=== PATIENT | male | born 1990 | race Caucasian/White ===

== ENCOUNTER 2018-12-22 01:52 | Emergency (ER) | payer OTHER ==
[2018-12-22] MEDS ORDERED: Codeine/guaiFENesin 100mg-10 MG/5 ML Soln 118 ML Bottle PO ONE (01:53)
--- NOTE | 2018-12-22 03:29 | ER ---
DATE SEEN: 12/22/2018 CHIEF COMPLAINT: Cough. HISTORY OF PRESENT ILLNESS: This is a 28-year-old male with a cough for 5 days that is constant, paroxysmal, and productive. No fever. Has tried Tessalon Perles and [id number] DayQuil and NyQuil with no improvement. SOCIAL HISTORY: Smoker. REVIEW OF SYSTEMS: No chest pain or shortness of breath. PHYSICAL EXAMINATION: GENERAL: He is a well-nourished and developed male. VITAL SIGNS: He is afebrile and normotensive. ENT: Negative. HEENT: Head is atraumatic. CHEST: Clear. CARDIOVASCULAR: Normal. IMPRESSION: Acute bronchitis. TREATMENT: Robitussin with Codeine 10 mL every 6 hours p.r.n. for cough. If symptoms are not improved in the next 1 week, should follow up with PCP. I also discussed smoking cessation for 3 to 5 minutes. /[id number] JUSTIN/KHANG
== END 2018-12-22 02:30 | disposition home or self-care (01) ==
LOC: FB.ED 01:52
DX: J20.9 Acute bronchitis, unspecified (principal); F17.200 Nicotine dependence, unspecified, uncomplicated
CPT/HCPCS: 99282; A9270

== ENCOUNTER 2019-10-09 23:03 | Emergency (ER) | payer MEDICAID, OTHER ==
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
[2019-10-09] MEDS ORDERED: Iopamidol 755 Mg/ML 100 ML Bottle IV ONE (23:28)
[2019-10-09] MEDS ORDERED: Diphtheria,Pertussis(Acell),Tetanus Vaccine 0.5 ML SDV IM ONE (23:38)
[2019-10-09] MEDS ORDERED: Sodium Chloride 0.9% 1,000 ML IV SCH (23:45)
[2019-10-10] MEDS: Sodium Chloride 0.9% 10 ML Syringe FLUSH PRN ×2 (00:40→01:48)
[2019-10-10] MEDS ORDERED: HYDROmorphone 2 MG/ML SDV IVPUSH ONE (00:55)
[2019-10-10] MEDS ORDERED: Sodium Chloride 0.9% 1,000 ML IV SCH (01:00)
[2019-10-10] MEDS ORDERED: HYDROmorphone 2 MG/ML SDV ONE (01:10)
== END 2019-10-10 03:35 | disposition home or self-care (01) ==
LOC: FB.ED 23:03
DX: S31.119A Laceration without foreign body of abdominal wall, unspecified quadrant without penetration into peritoneal cavity, initial encounter (principal); S20.319A Abrasion of unspecified front wall of thorax, initial encounter; S40.811A Abrasion of right upper arm, initial encounter; S80.811A Abrasion, right lower leg, initial encounter; S00.93XA Contusion of unspecified part of head, initial encounter; T79.6XXA Traumatic ischemia of muscle, initial encounter; Z23 Encounter for immunization; E87.6 Hypokalemia; Z88.6 Allergy status to analgesic agent; Z88.5 Allergy status to narcotic agent; Z88.0 Allergy status to penicillin; V03.90XA Pedestrian on foot injured in collision with car, pick-up truck or van, unspecified whether traffic or nontraffic accident, initial encounter
CPT/HCPCS: 12005; 36415; 70450; 71260; 72125; 73552-RT; 73560-RT; 74177; 80053; 80305-QW; 80307; 81001; 82550; 83605; 85025; 85610; 86140; 90471; 90715; 96361; 96374; 99284-25; J1170; J7030; Q9967

== ENCOUNTER 2019-11-26 15:47 | Emergency (ER) | payer MEDICAID, OTHER ==
[2019-11-26] MEDS ORDERED: Ondansetron 4 MG/2 ML SDV IVPUSH ONE (16:12)
[2019-11-26] MEDS ORDERED: Sodium Chloride 0.9% 10 ML Syringe FLUSH PRN (16:12)
[2019-11-26] MEDS ORDERED: Ketorolac 30 MG/ML SDV IVPUSH STA (16:13)
[2019-11-26] MEDS ORDERED: Sodium Chloride 0.9% 1,000 ML IV SCH (16:15)
[2019-11-26] MEDS ORDERED: Iopamidol 755 Mg/ML 100 ML Bottle IV ONE (16:27)
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
--- NOTE | 2019-11-26 17:48 | CT ---
INDICATION: Right lower quadrant pain. CT ABDOMEN AND PELVIS WITH CONTRAST: Spiral 3.75 mm axial sections were obtained through the abdomen and pelvis with 100 mL Isovue-370 at 2 mL per second with sagittal and coronal reconstructions 11/26/19 and repeated to better visualize the ureters after a significant delay for CT urogram, and compared with 10/09/19. Total exam DLP was 645.46 mGy-cm. The lower lung [place] and pleural spaces visualized appeared normal. The heart is normal in size. No pericardial effusion was seen. The liver appeared normal in size and shape. However, on the current study there is now noted a new finding - periportal halo formation which is seen in numerous entities including hepatitis, cholangitis, liver injury, and any obstructive process to the lymphatic system. Apparently no recent trauma has occurred. Liver enzymes reported to be normal. Findings should be correlated clinically. Additional workup may be warranted. No gallstones were demonstrated. The appendix appeared normal visualized on axial images 80 through 87 and coronal images 46 to 50. The left kidney had a normal appearance without evidence of obstructive uropathy. On the right, there is obstructive uropathy with pyelocaliectasis and ureterectasis down to a 1.8 mm calculus at the ureterovesical junction. CT urogram demonstrated a dilated ureter down to the ureterovesical junction. No evidence of free air or bowel obstruction was identified. The prostate was somewhat prominent in size. No additional organomegaly, mass lesions or free fluid collections were identified in the abdomen or pelvis. IMPRESSION: 1. Obstructive uropathy due to a tiny calculus at the ureterovesical junction producing obstructive uropathy on the right which appears to be at least moderate degree in severity. 2. Perivenous edema suggested in the liver producing a periportal halo sign throughout the liver, not present on the previous CT scan from September. Report was called to Dr. Mitchell at [address] [facility]ITAL[facility]in
== END 2019-11-26 17:50 | disposition home or self-care (01) ==
LOC: FB.ED 15:47
DX: N20.9 Urinary calculus, unspecified (principal); Z88.0 Allergy status to penicillin; Z88.5 Allergy status to narcotic agent
CPT/HCPCS: 36415; 74177; 80053; 80305; 81001; 82150; 83690; 85025; 96361; 96374; 96375; 99284; J1885; J2405; J7030; Q9967